=== PATIENT | female | born 1955 | race African-American/Black ===

== ENCOUNTER 2018-09-06 16:23 | Inpatient (IN) | payer BC ==
[~2018-09-06] VITALS: Ht 157.5 cm; Wt 39.5 kg
[2018-09-06] MEDS ORDERED: IPRATRPIUM/ALBUTEROL 0.5/2.5MG 3 ML NEBU. NEB ONE (16:45)
[2018-09-06] MEDS ORDERED: methylPREDNISolone SOD SUCC PF 125 MG/2 ML VIAL. IV ONE ×2 (17:00→22:15)
[2018-09-06 17:13] LABS: BGAS PH 7.33 (7.35-7.45)
[2018-09-06 17:15] LABS: BASO # 0.1 x10^3/uL (0.0-0.2); BASO % 1 % (0-3); EOS % 0 % (0-3); HEMATOCRIT 48.9 % (36.0-47.0); HEMOGLOBIN 16.3 g/dL (12.0-15.5); LYMPH # 1.2 x10^3/uL (1.0-4.8); LYMPH % 18 % (24-48); MEAN CORPUSCULAR HEMOGLOBIN 33 pg (25-35); MEAN CORPUSCULAR HGB CONC 33 g/dL (31-37); MEAN CORPUSCULAR VOLUME 99 fL (79-100); MONO # 0.7 x10^3/uL (0.0-1.1); MONO % 10 % (0-9); NEUT # 4.7 x10^3uL (1.8-7.7); NEUT % 71 % (31-73); PLATELET COUNT 121 x10^3/uL (140-400); RED BLOOD COUNT 4.97 x10^6/uL (3.50-5.40); RED CELL DISTRIBUTION WIDTH 14.5 % (11.5-14.5); WHITE BLOOD COUNT 6.6 x10^3/uL (4.0-11.0)
[2018-09-06 17:31] LABS: ALBUMIN 4.2 g/dL (3.4-5.0); CALCIUM 9.3 mg/dL (8.5-10.1); CREATININE 0.6 mg/dL (0.6-1.0); MAGNESIUM 1.9 mg/dL (1.8-2.4); POTASSIUM 4.5 mmol/L (3.5-5.1); TOTAL BILIRUBIN 0.3 mg/dL (0.2-1.0); TOTAL PROTEIN 8.6 g/dL (6.4-8.2)
[2018-09-06 17:33] LABS: PLT ESTIMATE ADEQUATE (ADEQUATE)
[2018-09-06 17:35] LABS: INFLUENZA A PATIENT NEGATIVE (NEGATIVE); INFLUENZA B PATIENT NEGATIVE (NEGATIVE)
[2018-09-06] MEDS ORDERED: IV NORMAL SALINE 50ML 50 ML ONE (17:48)
[2018-09-06] MEDS ORDERED: cefTRIAXone SODIUM 1 GM VIAL IV ONE (17:48)
[2018-09-06 18:00] LABS: BILIRUBIN,URINE NEG (NEG); CLARITY,URINE CLEAR; COLOR,URINE YELLOW; GLUCOSE,URINE NEG (NEG); NITRITE,URINE NEG (NEG); UROBILINOGEN,URINE 0.2 mg/dL (0.2 mg/dL)
[2018-09-06 18:01] LABS: BACTERIA,URINE 0 /HPF (0-FEW); SQUAMOUS EPITHELIAL CELL,UR FEW /LPF; WBC,URINE RARE /HPF (0-4)
[2018-09-06 18:02] LABS: AMPHETAMINE/METHAMPHETAMINE NEG (NEG); BARBITURATES NEG (NEG); BENZODIAZEPINES NEG (NEG); CANNABINOIDS POS (NEG); COCAINE NEG (NEG); METHADONE NEG (NEG); OPIATES NEG (NEG); PHENCYCLIDINE NEG (NEG)
--- NOTE | 2018-09-06 18:12 | PHYS DOC ---
Past History Past Medical History: A-Fib, Asthma, COPD, Hypotension Alcohol Use: None Drug Use: Marijuana Adult General Chief Complaint Chief Complaint: SHORTNESS OF BREATH HPI HPI Patient is a 63 year old female who presents with shortness of breath. Patient has history of COPD and currently smoking and complaining of shortness of breath that started yesterday as a constant shortness of breath that getting worse with activity. She complaining of nonproductive cough for 2 weeks without chest pain, fever and chills, nasal congestion, palpitation, urinary symptoms, sick contact. Review of Systems Review of Systems Constitutional: Denies fever or chills [] Eyes: Denies change in visual acuity, redness, or eye pain [] HENT: Denies nasal congestion or sore throat [] Respiratory: Reports cough and shortness of breath Cardiovascular: No additional information not addressed in HPI [] GI: Denies abdominal pain, nausea, vomiting, bloody stools or diarrhea [] : Denies dysuria or hematuria [] Musculoskeletal: Denies back pain or joint pain [] Integument: Denies rash or skin lesions [] Neurologic: Denies headache, focal weakness or sensory changes [] Endocrine: Denies polyuria or polydipsia [] All other systems were reviewed and found to be within normal limits, except as documented in this note. Current Medications Current Medications Current Medications Medications (Trade) Dose Ordered Sig/Samm Start Time Stop Time Status Last Admin Dose Admin Albuterol/ Ipratropium (Duoneb) 3 ml 1X ONCE 09/06/18 16:45 09/06/18 17:07 DC Ceftriaxone Sodium 1 gm/ Sodium Chloride 50 ml @ 100 mls/hr 1X ONCE 09/06/18 17:45 09/06/18 18:14 UNV Ceftriaxone Sodium (Rocephin) 1 gm STK-MED ONCE 09/06/18 17:48 09/06/18 17:50 DC Methylprednisolone Sodium Succinate (SOLU-Medrol 125MG VIAL) 125 mg 1X ONCE 09/06/18 17:00 09/06/18 17:07 DC 09/06/18 17:29 125 MG Sodium Chloride 50 ml @ As Directed STK-MED ONCE 09/06/18 17:48 09/06/18 17:50 DC Allergies Allergies Allergies Coded Allergies Type Severity Reaction Last Updated Verified meperidine Allergy Unknown 09/06/18 Yes Physical Exam Physical Exam Constitutional: Well developed, moderate distress, non-toxic appearance, thin. [ ] HENT: Normocephalic, atraumatic, oropharynx moist, no oral exudates, nose normal. [] Eyes: PERRLA, EOMI, conjunctiva normal, no discharge. [] Neck: Normal range of motion, no tenderness, supple, no stridor. [] Cardiovascular:Heart rate regular rhythm, no murmur [] Lungs & Thorax: Mild respiratory distress with intercostal retraction and hyperventilation, bilateral rhonchi . Abdomen: Bowel sounds normal, soft, no tenderness, no masses, no pulsatile masses. [] Skin: Warm, dry, no erythema, no rash. [] Back: No tenderness, no CVA tenderness. [] Extremities: No tenderness, no cyanosis, no clubbing, ROM intact, no edema. [] Neurologic: Alert and oriented X 3, normal motor function, normal sensory function, no focal deficits noted. [] Psychologic: Affect normal, judgement normal, mood normal. [] Current Patient Data Vital Signs Vital Signs Date Time Temp Pulse Resp B/P (MAP) Pulse Ox O2 Delivery O2 Flow Rate FiO2 09/06/18 17:41 96 18 142/90 (107) 100 Nasal Cannula 2.0 09/06/18 16:31 98.5 Lab Results Laboratory Tests Test 09/06/18 16:44 09/06/18 16:50 09/06/18 16:55 Blood pH 7.33 (7.35-7.45) L Blood Gas PCO2 48 mmHg (35-45) H Blood Gas PO2 100 mmHg (80-100) Blood Gas HCO3 25 mmol/L (22-26) Arterial Bld O2 Saturation (Calc) 97 % (92-99) FiO2 36 % Sodium Level 135 mmol/L (136-145) L Potassium Level 4.5 mmol/L (3.5-5.1) Chloride Level 97 mmol/L (98-107) L Carbon Dioxide Level 28 mmol/L (21-32) Anion Gap 10 (6-14) Blood Urea Nitrogen 8 mg/dL (7-20) Creatinine 0.6 mg/dL (0.6-1.0) Estimated GFR (Cockcroft-Gault) 123.0 BUN/Creatinine Ratio 13 (6-20) Glucose Level 127 mg/dL (70-99) H Lactic Acid Level 1.1 mmol/L (0.4-2.0) Calcium Level 9.3 mg/dL (8.5-10.1) Magnesium Level 1.9 mg/dL (1.8-2.4) Total Bilirubin 0.3 mg/dL (0.2-1.0) Aspartate Amino Transferase (AST) 19 U/L (15-37) Alanine Aminotransferase (ALT) 26 U/L (14-59) Alkaline Phosphatase 56 U/L (46-116) Creatine Kinase 128 U/L (26-192) Troponin I Quantitative < 0.017 ng/mL (0-0.055) Total Protein 8.6 g/dL (6.4-8.2) H Albumin 4.2 g/dL (3.4-5.0) Albumin/Globulin Ratio 1.0 (1.0-1.7) White Blood Count 6.6 x10^3/uL (4.0-11.0) Red Blood Count 4.97 x10^6/uL (3.50-5.40) Hemoglobin 16.3 g/dL (12.0-15.5) H Hematocrit 48.9 % (36.0-47.0) H Mean Corpuscular Volume 99 fL (79-100) Mean Corpuscular Hemoglobin 33 pg (25-35) Mean Corpuscular Hemoglobin Concent 33 g/dL (31-37) Red Cell Distribution Width 14.5 % (11.5-14.5) Platelet Count 121 x10^3/uL (140-400) L Neutrophils (%) (Auto) 71 % (31-73) Lymphocytes (%) (Auto) 18 % (24-48) L Monocytes (%) (Auto) 10 % (0-9) H Eosinophils (%) (Auto) 0 % (0-3) Basophils (%) (Auto) 1 % (0-3) Neutrophils # (Auto) 4.7 x10^3uL (1.8-7.7) Lymphocytes # (Auto) 1.2 x10^3/uL (1.0-4.8) Monocytes # (Auto) 0.7 x10^3/uL (0.0-1.1) Eosinophils # (Auto) 0.0 x10^3/uL (0.0-0.7) Basophils # (Auto) 0.1 x10^3/uL (0.0-0.2) Platelet Estimate Adequate (ADEQUATE) Large Platelets Few Giant Platelets Few Influenza Type A (Rapid) Negative (NEGATIVE) Influenza Type B (Rapid) Negative (NEGATIVE) EKG EKG EKG interpreted by me. EKG at 1658 showed normal sinus rhythm at rate of 85, no QRS voltage, poor R-wave progress in anteroseptal leads, no acute ST and T-wave abnormalities. Radiology/Procedures Radiology/Procedures Chest x-ray interpreted by me did not show infiltration.[] Course & Med Decision Making Course & Med Decision Making Pertinent Labs and Imaging studies reviewed. (See chart for details) Evaluation of patient in ER showed 63-year-old female patient with history of COPD and currently smoking presented to ER with complaining shortness of breath since yesterday. Patient had mild distress with hyperventilation and intercostal retraction and O2 sat of 94% on room air. Patient treated with oxygen and DuoNeb and Solu-Medrol with improvement of her condition. Chest x- ray did not show infiltration. Patient did not have leukocytosis or elevation of lactic acid. Dr Hyman accepted admission at 1733. Dragon Disclaimer Dragon Disclaimer This electronic medical record was generated, in whole or in part, using a voice recognition dictation system. Departure Departure: Impression: Primary Impression: Acute respiratory distress Additional Impression: COPD exacerbation Disposition: 09 ADMITTED INPATIENT (at 1735) Admitting Physician: Vidya Hyman (accepted admission at 1732) Condition: IMPROVED Referrals: MOJGAN SWANN DO (PCP) Problem Qualifiers APPLE ESPINOZA MD Sep 06, 2018 18:12
[2018-09-06 20:15] VITALS: BP 116/64
--- NOTE | 2018-09-06 20:58 | EKG ---
[address] [address] Test Date: 2018-09-06 Test Time: 16:58:58 Pat Name: AUDREY ALLEN Department: Room: [facility]04 1 Gender: F [employer] Set Up Operator: ZEINA : 1955 Requested By: APPLE ESPINOZA Order Number: [id number] Reading MD: Handy Jones Measurements Intervals [place] Rate: 85 P: 83 ND: 172 QRS: 164 QRSD: 72 T: 76 QT: 350 QTc: 422 Interpretive Statements SINUS RHYTHM LOW LIMB LEAD VOLTAGE Electronically Signed On 09-09-2018 17:20:57 [employer] by Handy Jones
--- NOTE | 2018-09-06 21:14 | RAD ---
PORTABLE CHEST 1V Clinical Indication: Short of breath x 1 day, hx of COPD and a Smoker Comparison: Two-view chest July 07, 2010. Findings: The cardiomediastinal silhouette is normal. Lungs are clear. There is no pneumothorax. No pleural effusion is appreciated. No acute bone abnormality. IMPRESSION: No acute cardiopulmonary process. Electronically signed by: Sandro Cole MD (09/06/2018 9:10 PM) [facility]
[2018-09-06 21:15] VITALS: BP 106/63
[2018-09-06] MEDS ORDERED: SUMA5SPR2 NAS (21:43)
[2018-09-06] MEDS ORDERED: VERA240C4 PO (21:43)
[2018-09-06] MEDS ORDERED: ALBU2.5V8 INH (22:03)
[2018-09-06 22:15] VITALS: BP 130/66
[2018-09-06] MEDS: IPRATRPIUM/ALBUTEROL 0.5/2.5MG 3 ML NEBU. NEB SCH (22:26)
[2018-09-06] MEDS: IV NORMAL SALINE 1,000ML 1,000 ML IV SCH (22:27)
[2018-09-06 23:15] VITALS: BP 101/58
[2018-09-07] VITALS (9 sets, daily range): BP systolic 100–131; BP diastolic 52–77
[2018-09-07] MEDS: IPRATRPIUM/ALBUTEROL 0.5/2.5MG 3 ML NEBU. NEB SCH ×4 (05:47→20:30)
[2018-09-07] MEDS ORDERED: methylPREDNISolone SOD SUCC PF 40 MG/ML VIAL. IV SCH (06:00)
[2018-09-07 06:19] LABS: BASO % 0 % (0-3); EOS % 0 % (0-3); HEMATOCRIT 44.5 % (36.0-47.0); HEMOGLOBIN 14.7 g/dL (12.0-15.5); LYMPH # 0.3 x10^3/uL (1.0-4.8); LYMPH % 10 % (24-48); MEAN CORPUSCULAR HEMOGLOBIN 33 pg (25-35); MEAN CORPUSCULAR HGB CONC 33 g/dL (31-37); MEAN CORPUSCULAR VOLUME 99 fL (79-100); MONO # 0.2 x10^3/uL (0.0-1.1); MONO % 6 % (0-9); NEUT # 2.9 x10^3uL (1.8-7.7); NEUT % 84 % (31-73); PLATELET COUNT 104 x10^3/uL (140-400); RED BLOOD COUNT 4.52 x10^6/uL (3.50-5.40); RED CELL DISTRIBUTION WIDTH 14.7 % (11.5-14.5); WHITE BLOOD COUNT 3.4 x10^3/uL (4.0-11.0)
[2018-09-07 06:27] LABS: CREATININE 0.6 mg/dL (0.6-1.0); POTASSIUM 4.2 mmol/L (3.5-5.1)
[2018-09-07] MEDS ORDERED: AZITHROMYCIN 500 MG in IV NORMAL SALINE 250ML 250 ML IV SCH (06:30)
[2018-09-07 07:43] LABS: % SEGS 78 % (35-66)
[2018-09-07 07:44] LABS: % BANDS 7 % (0-9); % BASOS 0 % (0-3); % EOS 0 % (0-5); % LYMPHS 10 % (24-48); % MONOS 5 % (0-10); PLT ESTIMATE DECREASED (ADEQUATE); TOXIC VACUOLATION MOD
[2018-09-07] MEDS: IV NORMAL SALINE 1,000ML 1,000 ML IV SCH (08:55)
[2018-09-07] MEDS: VERAPAMIL SR 120 MG TABLET.ER. PO SCH (08:55)
[2018-09-07] MEDS: LACTOBACILLUS RHAMNOSUS GG 1 CAPSULE. PO SCH ×2 (09:30→20:13)
--- NOTE | 2018-09-07 14:25 | HP ---
ADMIT DATE: 09/06/2018 HISTORY OF PRESENT ILLNESS: The patient is a 63-year-old -[place] female patient, who apparently came to the Emergency Room with progressive shortness of breath, cough that has been going on for 2 weeks without any chest pain, fever, chills, nasal congestion, palpitations. She was investigated in the Emergency Room. LABORATORY DATA: Her lab worked showed that her white cell count was normal. Her blood gases showed a pH of 7.33, pCO2 of 48, pO2 of 100, bicarbonate 25, and oxygen saturation was 97% on FiO2 of 36. His chemistry was unremarkable. Her urinalysis was unremarkable. Her toxic screen was positive for cannabinoids. However, her influenza A and B were negative. She was admitted with acute hypercapnic respiratory failure, probably COPD exacerbation as her lung showed mildly inflated lung; however, there is no infiltrate, no pneumothorax, pleural effusion. She was started on IV Rocephin as well as Zithromax, IV steroids as well as bronchodilator was admitted to the ICU for close observation. PAST MEDICAL HISTORY: Significant for hypertension and remote history of pulmonary embolism treated with Coumadin. She has also significant weight loss from 115 to 85, which is unintentional. PAST SURGICAL HISTORY: Significant for tonsillectomy, appendectomy, big toe fracture, left hand nerve damage repair and epigastric hernia repair. ALLERGIES: SHE IS ALLERGIC TO DEMEROL. MEDICATIONS: She is currently on albuterol sulfate 1 puff every 6 hours, verapamil 240 mg once a day and sumatriptan 5 mg spray one spray to each nostril as needed for migraine headache. FAMILY HISTORY: She has 3 sisters still alive, 2 brothers, 1 of motor vehicle accident, 1 of myocardial infarction and has congestive heart failure, end-stage renal disease. Her mother is still alive and has had myocardial infarction and underwent coronary artery bypass graft surgery. She has also cerebrovascular accident. Her father at age of 83 of broken heart. SOCIAL HISTORY: She is , has 1 daughter and 2 sons. She smokes 7 cigarettes a day, has been a smoker for 45 years. Drinks wine occasionally. Continue to smoke marijuana almost daily. She of works in the [employer] services at the [employer]. REVIEW OF SYSTEMS: The patient denied any blurring of vision, cataract, glaucoma or macular degeneration. Denied any earache, tinnitus or sensorineural deafness. Denied any nosebleeds, stuffy nose or postnasal drip. Denied any sore throat, sore tongue, toothache, hoarseness of voice or difficulty swallowing. Did complain of unintentional weight loss of almost 30 pounds in over a year. Denied any nausea, vomiting, diarrhea or constipation. Denied any hematemesis, melena or hematochezia. Denied any dysuria, frequency or hematuria. Denied any chest pains. Did complain of shortness of breath, but denied any orthopnea or paroxysmal nocturnal dyspnea. Her cough is mostly dry. Denied any hemoptysis. Denied any chills, rigors, or fever. Denied any dizziness, lightheadedness, or vertigo. PHYSICAL EXAMINATION: GENERAL: On arrival to the Emergency Room, she was clearly somewhat tachypneic, pale, cachectic, but not jaundice, cyanosis, or thyromegaly. No jugular venous distension. No limb edema. VITAL SIGNS: Her heart rate was 94, blood pressure 142/90, temperature was 98.5, respiratory rate was 18 and oxygen saturation was 94% on 4 liters of oxygen. HEAD, EYES, EARS NOSE AND THROAT: Showed normocephalic, atraumatic. NECK: Supple. HEART: Showed normal first and second heart sounds. No gallop or murmur. CHEST: Shows central trachea, equally reduced expansion, reduced air entry, vesicular sounds with diffuse rhonchi bilaterally. ABDOMEN: Slightly distended, soft, nontender. NEUROLOGIC: She was awake, alert, responding appropriately. Cranial nerves intact. She moves extremities without difficulty. She ambulates without assistance or assistive devices. LABORATORY DATA: Her lab work on admission showed a white cell count of 6600, hemoglobin 16, hematocrit 48.9, MCV 99 and platelet count of 121,000. Her chemistry showed a serum sodium 135, potassium 4.5, chloride 97, bicarbonate 28, anion gap of 10, BUN 8, creatinine was 0.6, estimated GFR was 123 mL per minute. Her glucose was 127. Her lactic acid was 1.1. Calcium was 9.3, magnesium 1.9. Total bilirubin, AST, ALT, alkaline phosphatase were normal. Her total protein was 8.6, albumin was 4.2. Urinalysis was essentially unremarkable. Toxic screen was positive for cannabinoids. Her influenza A and B were negative. Her chest x-ray showed that the cardiomediastinal silhouette is normal. Lungs are clear. There is no pneumothorax, no pleural effusion is appreciated. No acute bone abnormality. ASSESSMENT AND PLAN: The patient was admitted with acute hypercapnic respiratory failure, probably some of his chronic obstructive pulmonary disease exacerbation given the history and other finding, hypertension and remote history of pulmonary embolism. She was treated with IV Rocephin. We added Zithromax as well as Solu-Medrol, Mucinex. KUSUM PATEL MD DR: MASHA/anabella JOB#: [id number] / [id number]
[2018-09-07] MEDS ORDERED: cefTRIAXone IV Push 1 GM VIAL. IVP SCH (18:00)
[2018-09-07] MEDS: methylPREDNISolone SOD SUCC PF 40 MG/ML VIAL. IV SCH (20:13)
--- NOTE | 2018-09-07 22:48 | PN ---
DATE: 09/07/2018 SUBJECTIVE: The patient was admitted yesterday with progressive shortness of breath, cough, which is mostly dry and was found to have acute hypercapnic respiratory failure and admitted with COPD exacerbation. When I saw her today, she is sitting up in her bed comfortably, in no apparent distress. She continued to have cough, chest tightness and wheezing. PHYSICAL EXAMINATION: GENERAL: When examining her, she was somewhat cachectic, no jaundice, cyanosis, or thyromegaly. No jugular venous distension. No lower limb edema. VITAL SIGNS: Her heart rate was 80, blood pressure was 130/66, temperature was 98.6, respiratory rate 22 and oxygen saturation 100% on 1 liter of oxygen. HEAD, EYES, EARS, NOSE AND THROAT: Showed normocephalic, atraumatic. NECK: Supple. HEART: Showed normal first and second heart sounds. No gallop or murmur. CHEST: Shows central trachea, equally reduced expansion, reduced air entry, vesicular sounds, bilateral scattered rhonchi. I could not appreciate any crepitation. ABDOMEN: Slight distended, soft. NEUROLOGIC: She was awake, alert, responding appropriately. All cranial nerves intact. She moves extremities without difficulty. LABORATORY DATA: Her lab work showed a white cell count of 3400, hemoglobin 14, hematocrit 44, MCV 99 and platelet count of 104,000 with normal manual differential. Her chemistry showed a serum sodium 137, potassium 4.2, chloride 100, bicarbonate 25, anion gap of 12, BUN 11, creatinine 0.6. ASSESSMENT: 1. Acute hypercapnic respiratory failure. 2. Chronic obstructive pulmonary disease exacerbation. 3. Hypertension. We will continue with the steroids, nebulized albuterol and Atrovent. Continue with Rocephin and Zithromax. The patient was counseled about the cigarette smoking and ways to quit smoking. I would check her thyroid function test to complete the picture. If she feels well tomorrow, we can discharge her home to continue with tapering course of steroids. KUSUM PATEL MD DR: MASHA/anabella JOB#: [id number] / [id number]
[2018-09-08 01:00] VITALS: BP 122/66
[2018-09-08 04:31] VITALS: BP 141/63
[2018-09-08] MEDS: IPRATRPIUM/ALBUTEROL 0.5/2.5MG 3 ML NEBU. NEB SCH ×2 (05:06→12:58)
[2018-09-08] MEDS ORDERED: HYDROcodone/APAP 5/325MG 1 TAB TABLET PO PRN (06:00)
[2018-09-08 06:16] LABS: BASO # 0.1 x10^3/uL (0.0-0.2); BASO % 1 % (0-3); EOS % 0 % (0-3); HEMATOCRIT 41.2 % (36.0-47.0); HEMOGLOBIN 13.6 g/dL (12.0-15.5); LYMPH # 0.4 x10^3/uL (1.0-4.8); LYMPH % 4 % (24-48); MEAN CORPUSCULAR HEMOGLOBIN 33 pg (25-35); MEAN CORPUSCULAR HGB CONC 33 g/dL (31-37); MEAN CORPUSCULAR VOLUME 98 fL (79-100); MONO # 0.9 x10^3/uL (0.0-1.1); MONO % 8 % (0-9); NEUT # 9.6 x10^3uL (1.8-7.7); NEUT % 87 % (31-73); PLATELET COUNT 101 x10^3/uL (140-400); RED BLOOD COUNT 4.19 x10^6/uL (3.50-5.40); RED CELL DISTRIBUTION WIDTH 14.9 % (11.5-14.5)
[2018-09-08 06:21] LABS: CREATININE 0.5 mg/dL (0.6-1.0); GFR 151.8; POTASSIUM 4.4 mmol/L (3.5-5.1)
[2018-09-08] MEDS: VERAPAMIL SR 120 MG TABLET.ER. PO SCH (08:12)
[2018-09-08] MEDS: LACTOBACILLUS RHAMNOSUS GG 1 CAPSULE. PO SCH (08:12)
[2018-09-08] MEDS: methylPREDNISolone SOD SUCC PF 40 MG/ML VIAL. IV SCH (08:13)
[2018-09-08 08:35] VITALS: BP 118/57
[2018-09-08] MEDS ORDERED: AZITHROMYCIN 250 MG TABLET. PO SCH (09:00)
[2018-09-08] MEDS ORDERED: IPRA3AMP29 NEB (13:11)
[2018-09-08] MEDS ORDERED: CEFP200T PO (13:15)
[2018-09-08] MEDS ORDERED: AZIT250T PO (13:15)
--- NOTE | 2018-09-08 14:44 | DS ---
DATE OF DISCHARGE: 09/08/2018 HOSPITAL COURSE: The patient is a 63-year-old -[place] female patient who was admitted to the Emergency Room with a complaint of shortness of breath, cough with scanty sputum that has been going on for almost 2 weeks. She also complains of chest tightness without any chest pain, fever, chills, nasal congestion. No palpitation. She was investigated in the Emergency Room, was found to have to be in acute hypercapnic respiratory failure. She was treated with IV antibiotic, steroids as well as bronchodilators together with antihypertensive medication and did very well and a decision was made to discharge her home to continue on oral antibiotic, tapering course of steroids and was counseled about smoking. An appointment was made for her to be seen by the contracting executive at [facility] on 10/04/2017. PHYSICAL EXAMINATION: GENERAL: On examining her today, she was sitting up in her chair, in no apparent respiratory distress. No pallor, jaundice, cyanosis, or thyromegaly. No jugular venous distension. No lower limb edema. VITAL SIGNS: Her heart rate was 88, blood pressure was 118/57, temperature was 98.2, respiratory rate 21 and oxygen saturation was 95% on room air. HEAD, EYES, EARS, NOSE AND THROAT: Showed normocephalic, atraumatic. NECK: Supple. HEART: Showed normal first and second heart sounds with no gallop, rub or murmur. CHEST: Clear to auscultation. No crepitation or rhonchi. ABDOMEN: Distended, soft, nontender. NEUROLOGIC: She is awake, alert, responding appropriately. All cranial nerves intact. EXTREMITIES: She moves extremities without difficulty. She ambulates without assistance or assistive devices. Her intake was 3100, output was 2275. LABORATORY DATA: Her lab work this morning showed a white cell count of 11,000, hemoglobin 13.6, hematocrit 41, MCV 98, and platelet count of 101,000. Her blood gases on admission showed a pH of 7.33, pCO2 of 48, pO2 of 100, bicarbonate 25, oxygen saturation was 97%. Her chemistry showed a serum sodium of 141, potassium 4.4, chloride 104, bicarbonate 29, anion gap of 8, BUN 14, creatinine 0.5, estimated GFR was 151 mL per minute. Her glucose 122, calcium was 9. Her influenza A and B were negative. Urinalysis was unremarkable and toxic screen was positive for cannabinoids. DISCHARGE MEDICATIONS: She was discharged home to continue on her azithromycin 250 mg once a day for 7 days, cefpodoxime proxetil for Vantin 200 mg twice a day for 7 days. She is on DuoNeb 0.5/2.5 mg 3 mL by nebulizer 4 times a day, and albuterol sulfate for ProAir 1 puff every 6 hours, sumatriptan 5 mg nasal spray for migraine headache as needed, and verapamil slow release 240 mg once a day. FINAL DISCHARGE DIAGNOSES: 1. Acute hypercapnic respiratory failure, improving. 2. Chronic obstructive pulmonary disease exacerbation. 3. Hypertension. 4. Migraine headache. 5. Unintentional weight loss for more than 30 pounds. The patient was counseled about cigarette smoking and ways to quit smoking. I did check her thyroid function that is still pending at the time of this discharge. Arrangement has been made for her to be seen by a contracting executive. KUSUM PATEL MD DR: MASHA/anabella JOB#: [id number] / [id number]
== END 2018-09-08 13:36 | disposition home or self-care (01) | DRG 189 ==
LOC: ER 16:23 → ICU 17:38
PROVIDERS: ADMIT Internal Medicine; ATTEND Internal Medicine
DX: J96.02 Acute respiratory failure with hypercapnia (principal); J44.1 Chronic obstructive pulmonary disease with (acute) exacerbation; F12.90 Cannabis use, unspecified, uncomplicated; F17.200 Nicotine dependence, unspecified, uncomplicated; G43.909 Migraine, unspecified, not intractable, without status migrainosus; R63.4 Abnormal weight loss; I10 Essential (primary) hypertension; I48.91 Unspecified atrial fibrillation; Z82.3 Family history of stroke; Z82.49 Family history of ischemic heart disease and other diseases of the circulatory system; Z86.711 Personal history of pulmonary embolism; Z88.8 Allergy status to other drugs, medicaments and biological substances; Z79.899 Other long term (current) drug therapy; F17.210 Nicotine dependence, cigarettes, uncomplicated; Z71.6 Tobacco abuse counseling
CPT/HCPCS: 36415; 71045; 80048; 80053; 80307; 81001; 82550; 82803; 83605; 83735; 83880; 84443; 84484; 85007; 85025; 87040; 87641; 87804; 93005; 94640; 96365; 96375; J0456; J0696; J2920; J2930; J7050; J7620; 99285-25; J7030

== ENCOUNTER → 2020-08-22 | Outpatient (CLI) | payer BC ==
[~2020-08-22] MED LIST: ALBU2.5V8 INH; AZIT250T PO; CEFP200T PO; IPRA3AMP29 NEB; SUMA5SPR2 NAS; VERA240C4 PO
--- NOTE | 2020-08-22 18:37 | RAD ---
MR#: [id number] Date of Study: 08/22/2020 Ordering Physician: PARKER SCOTT Referring Physician: AYDE DILLON Tech: APPROVED REPORT Test Type: Exercise Stress Nurse/Tech: Kerry / Trudy Bear Test Indications: Dyspnea Cardiac History: 2 IA's at age 25 and 45 Resting Heart Rate: 95 bpm Resting Blood Pressure: 168/73mmHg Pretest Chest Pain: None Stress Symptoms Dyspnea, 1st stage held 2 min into test POST EXERCISE Reason for Termination: Dyspnea, Fatigue Target HR: 133 Max HR: 144 bpm 92% of Maximum Predicted HR: 157 bpm Exercise duration: 7:05 min:sec, 1 Stage Exercise capacity: 4.6METs Max Blood Pressure: 174/66mmHg Blood Pressure response to exercise: Normal blood pressure response during stress. Heart Rate response to exercise: increase Chest Pain: No. Arrhythmia: No. ST Change: No. INTERPRETATION Stress EKG Conclusion: The resting EKG showed a sinus rhythm with mild nonspecific ST-T wave changes and a small septal Q wave in V1 and V2. The stress EKG showed no significant changes from baseline. No EKG evidence of stress-induced ischemia. Conclusion 1. Fair exercise tolerance with the patient walking for 7 minutes and 5 seconds on a modified Gilberto p rotocol. 2. No chest pain with exertion. 3. No significant arrhythmias with exertion. 4. Mildly abnormal baseline EKG but no EKG evidence of stress-induced ischemia. 5. Moderately low risk treadmill stress test. Signed by : Chris Lowry MD Electronically Approved : 08/22/2020 18:36:39
== END ==
LOC: NM 08:14
PROVIDERS: ATTEND Internal Medicine Pulmonary Disease
DX: R06.00 Dyspnea, unspecified (principal)
CPT/HCPCS: 93017

== ENCOUNTER → 2020-12-06 | Outpatient (CLI) | payer BC ==
--- NOTE | 2020-12-06 16:49 | RAD ---
PA and lateral chest. HISTORY: Short of breath PA and lateral views were taken of the chest. There is no pneumothorax or pleural effusion. There is hyperexpansion suggesting chronic obstructive pulmonary disease. There are calcified granulomas. Ther e are other small nodules probably granulomas but CT could be of benefit. Heart is normal in size. Th ere is mild dorsal kyphosis. IMPRESSION: 1. Hyperexpansion probable chronic obstructive pulmonary disease. 2. Small calcified granulomas. 3. Possible other small nodule CT could be of benefit. Electronically signed by: Dieudonne Hylton MD (12/06/2020 4:46 PM) [id number]
== END ==
LOC: RAD 14:11
PROVIDERS: ATTEND Internal Medicine Pulmonary Disease
DX: J44.9 Chronic obstructive pulmonary disease, unspecified (principal); J98.4 Other disorders of lung
CPT/HCPCS: 71046

== ENCOUNTER → 2021-01-17 | Outpatient (CLI) | payer BC ==
--- NOTE | 2021-01-17 11:29 | RAD ---
Low-dose CT scan of the chest without contrast 01/17/2021 CLINICAL HISTORY: Possible nodules seen on recent chest radiographs. TECHNIQUE: Unenhanced, contiguous, 0.625 mm axial sections were obtained through the chest using a lo w-dose protocol. 1 mm to 5 mm reconstructed axial and 5 mm sagittal and coronal reconstructed images were obtained. One or more of the following individualized dose reduction techniques were utilized for this study: 1. Automated exposure control. 2. Adjustment of the mA and/or kV according to patient size. 3. Use of iterative reconstruction technique. FINDINGS: Comparison study is dated 11/07/2010. Additional comparison is made to the patient's PA and l ateral chest radiographs dated 12/24/2020. Atherosclerotic calcification of the thoracic aorta and its branches is noted. The thoracic aorta is tortuous but tapers normally. The heart is normal in size. No hilar, mediastinal or axillary lymphade nopathy is seen. Small calcified granulomas are seen involving both lungs. Mild to moderate emphysematous changes are seen involving both lungs. An irregular noncalcified nodule is seen involving the right upper lobe which measures [address] diameter. This is new since the patient's previous CT scan. No additional noncalcified pulmonary nodule is seen. No area of consolidation is noted. No pneumothorax or pleural effusion is seen. IMPRESSION: 1 cm irregular noncalcified nodule is seen involving the right upper lobe. Lung-RADS evelia gory 4X (suspicious, greater than 15 percent chance of malignancy). Further evaluation with a PET CT scan is recommended. Electronically signed by: Bernardo Deluna MD (01/17/2021 11:27 AM) [id number]
== END ==
LOC: CT 09:39
PROVIDERS: ATTEND Family Medicine
DX: J43.9 Emphysema, unspecified (principal); I25.10 Atherosclerotic heart disease of native coronary artery without angina pectoris; I70.0 Atherosclerosis of aorta
CPT/HCPCS: 71250